=== PATIENT | male | born 1940 | race Caucasian/White ===

== ENCOUNTER 2017-08-15 09:53 | Inpatient (IN) ==
[2017-08-15] MEDS ORDERED: DILTIAZEM 50 MG/10 ML VIAL IV STA ×2 (10:22→11:18)
[2017-08-15] MEDS ORDERED: ASPIRIN 325 MG TABLET PO STA (10:22)
[2017-08-15] MEDS ORDERED: DILTIAZEM 50 MG/10 ML VIAL IV ONE (10:24)
[2017-08-15] MEDS ORDERED: ASPIRIN 325 MG TABLET ONE (10:27)
[2017-08-15 10:30] LABS: Basophils % 0.4 % (0.0-0.8); Eosinophils # 0.1 10*3/uL (0.0-0.87); Hematocrit 44.6 VOL% (42.0-52.0); Hemoglobin 15.1 GM/DL (14.0-18.0); Immature Granulocytes % 0.6 %; Immature Granulocytes Absolute 0.04 #; Lymphocytes # 1.1 10*3/uL (1.4-4.0); Lymphocytes % 15.6 % (21.2-54.2); Mean Corpuscular HGB Conc 33.9 GM/DL (32-36); Mean Corpuscular Hemoglobin 32 PG (27-34); Mean Corpuscular Volume 92.9 FL (87-102); Monocytes # 0.5 10*3/uL (0.11-0.8); Monocytes % 7.1 % (1.7-12.7); Neutrophils # 5.3 10*3/uL (1.4-7.4); Neutrophils % 75.3 % (38.7-73.9); Platelet Count 146 T/CUMM (130-400); Red Cell Distribution Width 14.2 % (9.3-17.3); White Blood Count 7.1 T/CUMM (4-12)
[2017-08-15 10:36] LABS: INR 1.1; PT Patient Result 11.2 SECS
--- NOTE | 2017-08-15 10:46 | XRay Report ---
XR chest 1V portable Indication: Shortness of breath Comparison: 11 February 2015 Findings: The heart and mediastinum are normal in size and configuration. The pulmonary vascularity is normal in caliber. Lung volumes are increased with prominent bronchial markings. No lung infiltrates, effusions, pneumothorax or other abnormality is demonstrated. Impression: Chronic lung changes. No acute process or significant change. PROCEDURE INTERPRETED AT [facility] DEPARTMENT OF RADIOLOGY Final Report Signed by: Dr. Jim Dave
[2017-08-15] MEDS ORDERED: APIXABAN 5 MG TABLET ONE (10:50)
[2017-08-15] MEDS ORDERED: DILTIAZEM 100 MG VIAL.ADD IV ONE (10:50)
--- NOTE | 2017-08-15 10:50 | CT Report ---
CT brain Indication: Left eye vision loss Comparison: None available Technique: Axial CT imaging of the brain is performed without contrast with 3 mm increments. Findings: No evidence of hemorrhage, mass mass effect midline shift or acute infarct seen. There is decreased density in the medial right occipital lobe. Remaining brain parenchyma attenuation and differentiation appears within normal limits. The ventricles and cisterns are normal in caliber. No cranial or skull base abnormality is identified. Impression: Decreased density medial right occipital lobe consistent with infarct, likely greater than 24-hour change. This CT exam was performed using one or more the following dose reduction techniques: Automated exposure control, adjustment of the MA and/or KV according to patient size, or use of iterative reconstruction technique. PROCEDURE INTERPRETED AT [facility] DEPARTMENT OF RADIOLOGY Final Report Signed by: Dr. Jim Dave
[2017-08-15] MEDS ORDERED: SODIUM CHLORIDE 0.9% 0 ML IV ONE (10:51)
[2017-08-15] MEDS ORDERED: SODIUM CHLORIDE 0.9% 100 ML IV ONE (10:52)
[2017-08-15] MEDS ORDERED: APIXABAN 5 MG TABLET PO STA (11:05)
[2017-08-15 11:10] LABS: Albumin 3.8 G/DL (3.4-5.0); Calcium 9.2 MG/DL (8.5-10.1); Osmolality,Calculated 281.4 MOS/KG (273-304); Potassium 4.1 MMOL/L (3.5-5.1); Thyroid Stimulating Hormone 0.91 uIU/ml (0.358-3.74); Total Protein 7.2 G/DL (6.4-8.3)
[2017-08-15 11:13] LABS: Troponin I Only 0.247 NG/ML (0.00-0.045)
--- NOTE | 2017-08-15 11:22 | Emergency Department Note ---
Judy Cristina Gwan, am scribing for, and in the presence of, Marc Martinez MD 10:12. Michelle Cristina Phillip K, MD, personally performed the services described in this documentation, ascribed by Hilario Kim in my presence, and it is both accurate and complete . Arrival - Arrival Chief Complaint: Non-Specific Stated Complaint: CT SCAN SENT BY DR COPE ED Nursing Triage Note: Pt c/o unable to see out of his left eye with some dizziness since he awoke this am at 0500. Pt went to Dr Cope's office and sent to ER for eval. Mode of Arrival: Ambulatory Limitations: No Limitations Source: Patient, Old Records Reviewed, RN Notes Reviewed - History of Present Illness HPI Narrative: Patient is a 77 y/o male, with a hx of HTN, who presents to the ED with a c/o vision change in both eyes and dizziness with an onset 0500 this morning. Patient stated that he reported to Dr. Cope's office and after further review, pt was prompted to report to ED. Patient confirmed that his vision is worse in his left eyes and that he takes low dose ASA daily. He denies any hx of AFIB, chest pain, SOB or any injury/trauma to that area. During exam, s/p EKG it was determined that pt has AFIB. No other problems/complaints reported in ED. Onset (ago): hour(s) Consistency: constant Severity: moderate Allergies/Adverse Reactions: Allergies Allergy/AdvReac Type Severity Reaction Status Date / Time No Known Allergies Allergy Verified 02/11/15 07:29 Home Medications: Home Medications Medication Instructions Recorded Confirmed Type Benazepril HCl 20 mg PO DAILY 02/11/15 02/11/15 History Naproxen [Naproxen Tab] 500 mg PO BID 02/11/15 02/11/15 History Omeprazole [Prilosec] 40 mg PO DAILY 02/11/15 02/11/15 History Review of System - Review of System 12 point system: reviewed and no additional remarkable complaints except as stated - Review of System Eyes: Present: as per HPI, vision change (both eyes/worse on left ). Absent: pain Respiratory: Absent: cough, wheezing Cardiovascular: Present: as per HPI. Absent: chest pain Neurological: Present: as per HPI, other (dizziness) Medical,Surgical,& Family Hx - Medical History Cardio: History of: Hypertension Genitourinary: History of: Genitourinary Cancer (prostate) - Surgical History Reproductive Surgeries: Surgical HX of;: Genitourinary Surgery (prostate) - Social History Smoking Status: Never smoker Exam Vital Signs: Vital Signs Temperature 97.4 F L 08/15/17 09:54 Pulse Rate 128 H 08/15/17 09:54 Respiratory Rate 16 08/15/17 09:54 Blood Pressure 142/100 08/15/17 09:54 O2 Sat by Pulse Oximetry 98 08/15/17 09:54 - General General appearance: alert, in no apparent distress - Head Head exam: Present: atraumatic, normocephalic - Eye Eye exam: Present: PERRL, EOMI. Absent: normal appearance (Patient's pupils are dialted due to Atropine given at Dr. Cope's office. ) - ENT ENT exam: Present: normal oropharynx, mucous membranes moist, TM's normal bilaterally, normal external ear exam - Neck Neck exam: Present: full ROM, trachea midline. Absent: tenderness - Chest Chest inspection: Present: symmetric chest wall rise. Absent: tenderness - Respiratory Respiratory exam: Present: normal lung sounds bilaterally. Absent: respiratory distress - Cardiovascular Cardiovascular exam: Present: tachycardia, irregular rhythm - Abdominal Exam Abdominal exam: Present: soft, normal bowel sounds. Absent: distention, tenderness - Extremities Exam Extremities exam: Present: full ROM. Absent: tenderness - Back Exam Back exam: Present: full ROM. Absent: tenderness - Neurological Exam Neurological exam: Present: alert, oriented X3, CN II-XII intact, other ( Decreased vision both eyes left greater than right). Absent: motor sensory deficit - Psychiatric Psychiatric exam: Present: normal affect, normal mood - Skin Skin exam: Present: warm, dry, intact, normal color Course Course Narrative: Admit to Dr. Lucia. Consult neurology Results - Labs CBC & BMP: 08/15/17 10:09 08/15/17 10:09 Lab Results: I have reviewed the patients labs - EKG EKG results: interpreted by CANDIDO (Atrial fibrillation with RVR) - Diagnostic Findings Procedure: CT: report reviewed by me (Right occipital lobe infarct) Disposition Clinical Impression: Right occipital lobe infarct, Vision loss, left eye Case discussed with: patient Disposition: Still a Patient Condition: Guarded Additional Instructions: Admit to Dr. Lucia.
[2017-08-15] MEDS: DILTIAZEM INJ 100 MG in SODIUM CHLORIDE 0.9% 100 ML IV SCH ×2 (12:05→19:06)
[2017-08-15] MEDS ORDERED: ONDANSETRON 4 MG/2 ML VIAL IV PRN (12:08)
[2017-08-15] MEDS ORDERED: ACETAMINOPHEN 325 MG TABLET PO PRN (12:08)
[2017-08-15] MEDS ORDERED: INFLUENZA VIRUS VACCINE 0.5 ML SYRINGE IM ONE (12:43)
--- NOTE | 2017-08-15 13:15 | Internal Med History&Physical ---
Assessment and Plan (1) Acute CVA (cerebrovascular accident) Status: Acute Assessment and plan: 77-year-old male admitted to acute care * Acute CVA. Probably related to A. fib. CT scan shows that infarct probably is over 24 hours old. Will need MRI of the brain. Consult Dr. De Jesus * New onset A. fib. Patient without any significant heart history. He has been short of breath for past few days. Will consult cardiology. He has been started on Eliquis and Cardizem infusion * Hypertension. Continue current treatment * Discussed with patient Current Visit: Yes (2) New onset atrial fibrillation Status: Acute Current Visit: Yes (3) Hypertension Status: Acute Current Visit: Yes (4) History of prostate cancer Status: Acute Current Visit: Yes (5) COPD (chronic obstructive pulmonary disease) Status: Acute Current Visit: Yes History of Present Illness Chief complaint: Unable to see out of left eye History of present illness: Mr. Falcon is a 77 year old male with history of hypertension, DVT, hyperlipidemia, osteoarthritis and prostate cancer who was drinking his for kidney surgery this morning. He got up this morning and was unable to see out of his left eye. He dropped his at the hospital and went to see his eye doctor and was sent to the emergency room. He had some associated dizziness. He denies any chest pain. He had felt some shortness of breath over last 2 days but nothing before that. He denied any weakness or slurred speech. He denied any falls or trauma. Patient has been taking his aspirin regularly. In the emergency room he was found to be in acute A. fib with rapid ventricular rate. Patient was evaluated with a CT brain which showed occipital infarct on the right side. Patient has been admitted to CCU. He feels his eyesight is getting better. He denies any chest pain or shortness of breath. He denies any nausea or vomiting. He lives at home with his . Home Medications Medication Instructions Recorded Confirmed Type Benazepril HCl 20 mg PO DAILY 02/11/15 08/15/17 History Naproxen [Naproxen Tab] 500 mg PO BID 02/11/15 08/15/17 History Omeprazole [Prilosec] 40 mg PO DAILY 02/11/15 08/15/17 History Aspirin [Ecotrin] 325 mg PO QAM 08/15/17 08/15/17 History Allergies Allergy/AdvReac Type Severity Reaction Status Date / Time No Known Allergies Allergy Verified 02/11/15 07:29 Medical,Surgical,& Family Hx - Medical History Cardio: History of: Cardiac Dysrhythmia (A fib (new onset 08/15/17)), Hypertension No history of: CAD Neurology: History of: Cerebrovascular Accident (Occipital 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/15/17) No history of: Dementia, Migraine, Seizures Endocrine: No history of: Dyslipidemia, Thyroid Disorder Respiratory: History of: COPD Genitourinary: History of: Genitourinary Cancer (prostate) Gastrointestinal: History of: GERD No history of: Gastrointestinal Bleed Musculoskeletal: No history of: Amputation, Musculoskeletal Problems (back pain) Hematology: No history of: Anemia, Clotting Problems, Blood Disorders - Surgical History HEENT Surgeries: Surgical HX of: Eye Surgery (bilateral cataract surgery), Tonsilectomy & Adenoidectomy Abdominal Surgeries: Surgical HX of: Appendectomy Patient denies: Cholecystectomy Reproductive Surgeries: Surgical HX of;: Prostate Surgery (Prostatectomy) Orthopedic Surgeries: Surgical HX of;: Spinal Surgery (Neck surgery twice in the past) Patient denies;: Orthopedic Surgery - Family History Family History: Reports;: Family Cancer (father (brain)) Denies;: Family Diabetes, Family Heart Disease, Family Hematology, Family Hypertension, Family Stroke - Social History Smoking Status: Former smoker Frequency of Alcohol Use: None Type of Drug Use: None Marital Status: Lives With:: Spouse Functional capacity: independent ambulation 12 point system: reviewed and no additional remarkable complaints except as stated (As mentioned in HPI) Exam - Constitutional Vitals: Period Temp Pulse Resp BP Sys/[place] Pulse Ox Last 24 Hr 97.4 F-98.0 F 128-135 16-18 123-142/89-105 98-99 Exam: Examination: GENERAL: NAD. HEENT: Decreased vision in both eyes. Mucous membranes are moist. NECK: Neck is supple. No JVD. No carotid bruit. No thyromegaly. CVS: Rhythm is irregularly irregular. S1 and S2 are normal. RESPIRATORY: Lungs are clear. No rales or rhonchi. ABDOMEN: Soft and nontender. Bowel sounds are present. No hepatosplenomegaly. EXT: No edema. Peripheral pulses are present. PATHOLOGY COLLECTOR: Patient is awake, alert and oriented to time place and person. Cranial nerves difficult to evaluate. Motor strength is 5 over 5 both upper and lower extremities. Sensory is intact. Deep tendon reflexes are present. SKIN: Warm and dry. MSK: No obvious deformity. Results - Labs CBC & BMP: 08/15/17 10:09 08/15/17 10:09 Lab Results: I have reviewed the past 24 hour labs Quality Measures - Stroke Onset of Symptoms Date: 08/15/17 Onset of Symptoms Time: 05:00 Presenting Symptoms: Sudden visual loss
[2017-08-15] MEDS ORDERED: NON-FORMULARY MEDICATION (Omeprazole [Prilosec] 40 MG) PO SCH (13:30)
--- NOTE | 2017-08-15 15:36 | Neurology Consult Note ---
History of Present Illness History of present illness: Mr. Falcon is a 77 year old right-handed white gentleman with past medical history significant for hypertension, DVT, hyperlipidemia, osteoarthritis and prostate cancer who is being admitted to the hospital with acute onset of vision difficulties. He got up this morning and was unable to see out of his left eye. He dropped his at the hospital and went to see his eye doctor and was sent to the emergency room. He had some associated dizziness. He denies any chest pain. He had felt some shortness of breath over last 2 days but nothing before that. He denied any weakness or slurred speech. He denied any falls or trauma. Patient has been taking aspirin regularly. In the emergency room he was found to be in acute A. fib with rapid ventricular rate. This is something new in onset. Patient was evaluated with a CT brain which showed acute right occipital lobe infarct. His vision is getting somewhat better. He has no known drug allergies. He was given 1 dose of Eliquis in the ER Home Medications Medication Instructions Recorded Confirmed Type Benazepril HCl 20 mg PO DAILY 02/11/15 08/15/17 History Naproxen [Naproxen Tab] 500 mg PO BID 02/11/15 08/15/17 History Omeprazole [Prilosec] 40 mg PO DAILY 02/11/15 08/15/17 History Aspirin [Ecotrin] 325 mg PO QAM 08/15/17 08/15/17 History Allergies Allergy/AdvReac Type Severity Reaction Status Date / Time No Known Allergies Allergy Verified 02/11/15 07:29 12 point system: reviewed and no additional remarkable complaints except as stated Medical,Surgical,& Family Hx - Medical History Cardio: History of: Cardiac Dysrhythmia (A fib (new onset 08/15/17)), Hypertension No history of: CAD Neurology: History of: Cerebrovascular Accident (Occipital lobe CVA 08/15/17) No history of: Dementia, Migraine, Seizures Endocrine: No history of: Dyslipidemia, Thyroid Disorder Respiratory: History of: COPD Genitourinary: History of: Genitourinary Cancer (prostate) Gastrointestinal: History of: GERD No history of: Gastrointestinal Bleed Musculoskeletal: No history of: Amputation, Musculoskeletal Problems (back pain) Hematology: No history of: Anemia, Clotting Problems, Blood Disorders - Surgical History HEENT Surgeries: Surgical HX of: Eye Surgery (bilateral cataract surgery), Tonsilectomy & Adenoidectomy Abdominal Surgeries: Surgical HX of: Appendectomy Patient denies: Cholecystectomy Reproductive Surgeries: Surgical HX of;: Genitourinary Surgery (prostate), Prostate Surgery (Prostatectomy) Orthopedic Surgeries: Surgical HX of;: Spinal Surgery (Neck surgery twice in the past) Patient denies;: Orthopedic Surgery - Family History Family History: Reports;: Family Cancer (father (brain)) Denies;: Family Diabetes, Family Heart Disease, Family Hematology, Family Hypertension, Family Stroke - Social History Smoking Status: Former smoker Frequency of Alcohol Use: None Type of Drug Use: None Exam - Constitutional Vitals: Period Temp Pulse Resp BP Sys/[place] Pulse Ox Last 24 Hr 97.4 F-98.0 F 87-135 16-22 102-142/54-105 96-99 Exam: GENERAL: Patient is in no acute distress. NECK: Neck is supple. There is no JVD. No carotid bruits present. No thyroid masses. CVS: First and second heart sounds are normal. There is no S3 present. Regular rate and rhythm. RESPIRATORY: Lungs are clear to auscultation without any rales or rhonchi. ABDOMEN: Soft and non-tender. Bowel sounds are present. There is no hepatosplenomegaly. EXT: There is no palpable edema. Peripheral pulses are present. Skin: No rashes Central Nervous system: General: Alert, awake and Oriented x 3 Speech: Fluent Comprehension: Intact and normal Facial expressions: Normal Cranial Nerves: CN1/Olfactory: Normal CN II/ Optic: Normal, Visual Mendez: Left homonymous hemianopia CN III, and : EDWIN & EOMI CN V: Normal & intact CN VII: face is symmetric CNVIII: Normal CN XI/X/XI/XII: Intact and Normal Motor: Bulk and Tone is normal. Strength in the right 5/5 Strength in the left 5/5 Sensory: Grossly intact for all the modalities of PP, LT and temp sense Reflexes: 1+ and symmetrical Cerebellar function: Normal finger to nose and heel to jarrett testing. Toes: Equivocal Gait: Not tested at this time Results - Labs CBC & BMP: 08/15/17 10:09 08/15/17 10:09 Assessment and Plan (1) Acute CVA (cerebrovascular accident) Status: Acute Assessment and plan: Continue aspirin a day Add Xarelto 20 mg. P.o. daily Check carotid ultrasound and echocardiogram Lipid panel Current Visit: Yes (2) New onset atrial fibrillation Status: Acute Assessment and plan: Continue Cardizem drip Current Visit: Yes (3) Hypertension Status: Acute Assessment and plan: Continue current medications. Check vitals per routine Current Visit: Yes
[2017-08-15] MEDS: RIVAROXABAN 20 MG TABLET PO SCH (17:44)
[2017-08-15 18:03] LABS: Risk Ratio 1.7; VLDL CHOLESTEROL 14.6 MG/DL
[2017-08-15 18:07] LABS: Troponin I Only 0.319 NG/ML (0.00-0.045)
--- NOTE | 2017-08-15 19:12 | Ultrasound Report ---
Exam: US carotid duplex BI Date: 08/15/2017 3:39 PM Indication: Focal neurologic deficit, CVA, syncope Findings: Grayscale color flow analysis and spectral analysis imaging was performed with image stored and captured. Right Side Flow velocities centimeters per second Common carotid artery: 54.6 Proximal ICA: 44.4 Distal ICA: 38.3 External carotid artery: 99.0 Vertebral artery: 45.5 ICA/CCA ratio: 0.8 Left SIde Flow velocities centimeters per second Common carotid artery: 46.2 Proximal ICA: 58.4 Distal ICA: 32.0 External carotid artery: 69.7 Vertebral artery: 31.3 ICA/CCA ratio: 1.3 Minimal calcified plaquing bilaterally with no significant stenosis or luminal irregularity. Impression: 1. No high-grade stenosis Today studies were performed utilizing indirect NASCET criteria The ultrasound images were stored and captured PROCEDURE INTERPRETED AT [facility] DEPARTMENT OF RADIOLOGY Final Report Signed by: Roberto Laws MD
--- NOTE | 2017-08-15 20:01 | Cardiology Consult Note ---
Hill Cristina Lesley, JACQUES, am scribing for, and in the presence of, Mike Cook MD 20:01. Assessment and Plan - Time spent with patient Time spent with patient: Greater than 30 minutes (Record review, assessment, and documentation) (1) Vision loss, left eye Status: Acute Assessment and plan: SEE PLAN LISTED BELOW Current Visit: Yes (2) Acute CVA (cerebrovascular accident) Status: Acute Assessment and plan: SEE PLAN LISTED BELOW Current Visit: Yes (3) Hypertension Status: Acute Assessment and plan: SEE PLAN LISTED BELOW Current Visit: Yes (4) COPD (chronic obstructive pulmonary disease) Status: Acute Assessment and plan: SEE PLAN LISTED BELOW Current Visit: Yes (5) Atrial flutter Status: Acute Current Visit: Yes (6) Atrial flutter Status: Acute Assessment and plan: SEE PLAN LISTED BELOW Current Visit: Yes History of Present Illness - Data of Consult Patient: new to practice Consult date: 08/15/17 Requesting Physician: Yony Lucia Primary care physician: Yony Lucia - Consult Narrative Reason for consult: AFIB, CVA History of present illness: HOSE TURNER: none Dr. Cook (new) Mr. Falcon is a 77 year old WM, with no history of cardiac disease. The patient is a fair historian. He reports that upon waking this morning at 0500, he noticed he could not see out of his left eye and dizziness upon standing. He states he had no peripheral vision in the left eye. He drove himself to Dr. Brooks's office, who directed him to the ER. EKG revealed Atrial Fibrillation with RVR, rate in the 130s. Head CT revealed right occipital lobe infarct, likely greater than 24 hour change. The patient denies heart palpitations, dyspnea, chest pain, heaviness, or tightness. Chest xray revealed no acute process, chronic lung changes. The patient states he quit smoking about 40 years ago. His is at the bedside, and states he had an inpatient cardiac workup approximately 9 years ago at [facility], records have been requested. He has not seen a Biochemistry Specialist in follow up. PMH includes prostate cancer, hiatal hernia, GERD, hypertension, chronic low back and hip pain. PSH includes cervical surgery, prostatectomy, skin cancer removal, and hemorrhoidectomy. Cardiac risk factors include obesity, advanced age, CVA, AFib, hypertension, sedentary lifestyle. Family history includes his father of brain cancer, his mother had hypertension and Alzheimers. He has 2 sisters who do not have cardiac history. The patient was admitted to ICU for observation. He was given a Cardizem bolus IV, and is currently on a Cardizem infusion. His heart rate is in the 90's with AFib on awake overnight monitor. The patient was dosed with Eliquis and ASA in the ED. Neurology has been consulted. Blood pressure is controlled, 120/90's. AFib rate is in the 90's on Cardizem at 15mg/hr. Labs reviewed, Troponin elevated at 0.247, thyroid studies unremarkable, glucose slightly elevated, creatinine 1.2, Magnesium 1.7. Plan to continue Cardizem infusion for rate control and convert to oral meds when able. Repeat cardiac biomarkers and EKG. We will continue anticoagulant, Eliquis, also antiplatelet therapy. No neurologic deficits noted on exam other than vision in left eye, pt. did not stand and walk during exam. IMPRESSION AND PLAN: -Atrial flutter. This is still quite RVR. This may also be the cause for his ischemic CVA. Continue anticoagulation. If heart rate is controlled with medical management, it would be optimal to anticoagulate him for at least a month, before attempting rhythm control. If we have to pursue this sooner, a CECY guided approach may be feasible. There is high risk, may still have an ALEX clot. -Beta-amy, calcium channel amy for RVR. Typical atrial flutter, likely will remain difficult rate control. -We may pursue ablation, once he improves. -Permissive blood pressure control, recent CVA CC: Yony Lucia MD - Home Medications and Allergies Home Medications: Home Medications Medication Instructions Recorded Confirmed Type Benazepril HCl 20 mg PO DAILY 02/11/15 08/15/17 History Naproxen [Naproxen Tab] 500 mg PO BID 02/11/15 08/15/17 History Omeprazole [Prilosec] 40 mg PO DAILY 02/11/15 08/15/17 History Aspirin [Ecotrin] 325 mg PO QAM 08/15/17 08/15/17 History Allergies/Adverse Reactions: Allergies Allergy/AdvReac Type Severity Reaction Status Date / Time No Known Allergies Allergy Verified 02/11/15 07:29 - Constitutional Constitutional: Absent: daytime sleepiness, fatigue, headache(s) - EENT Eyes: Present: blurry vision, loss of vision Ears: Absent: decreased hearing Nose, mouth and throat: Absent: dysphagia, headache(s) - Cardiovascular Cardiovascular: Present: edema, lightheadedness. Absent: chest pain at rest, chest pain with activity, diaphoresis, dyspnea, dyspnea on exertion, radiating jaw, neck or arm pain, palpitations - Respiratory Respiratory: Absent: cough, dyspnea, dyspnea on exertion, wheezing - Gastrointestinal Gastrointestinal: Absent: abdominal pain, coffee ground emesis, constipation, dyspepsia, dysphagia, hematemesis, hematochezia, nausea, vomiting - Genitourinary Genitourinary: Absent: difficulty urinating, hematuria - Neurological Neurological: Present: dizziness. Absent: abnormal speech, behavioral changes, confusion - Psychiatric Psychiatric: Absent: anxiety, confusion, depression - Endocrine Endocrine: Absent: fatigue - Hematologic/Lymphatic Hematologic/Lymphatic: Absent: easy bleeding Medical,Surgical,& Family Hx - Medical History Cardio: History of: Cardiac Dysrhythmia (A fib (new onset 08/15/17)), Hypertension No history of: CAD Neurology: History of: Cerebrovascular Accident (Occipital lobe CVA 08/15/17) No history of: Dementia, Migraine, Seizures Endocrine: No history of: Diabetes Mellitus (IDDM), Diabetes Mellitus (NIDDM), Dyslipidemia, Thyroid Disorder Respiratory: History of: COPD Genitourinary: History of: Genitourinary Cancer (prostate) Gastrointestinal: History of: GERD No history of: Gastrointestinal Bleed Musculoskeletal: No history of: Amputation, Musculoskeletal Problems (back pain) Hematology: No history of: Anemia, Clotting Problems, Blood Disorders - Surgical History HEENT Surgeries: Surgical HX of: Eye Surgery (bilateral cataract surgery), Tonsilectomy & Adenoidectomy Abdominal Surgeries: Surgical HX of: Appendectomy Patient denies: Cholecystectomy Reproductive Surgeries: Surgical HX of;: Genitourinary Surgery (prostate), Prostate Surgery (Prostatectomy) Orthopedic Surgeries: Surgical HX of;: Spinal Surgery (Neck surgery twice in the past) Patient denies;: Orthopedic Surgery - Family History Family History: Reports;: Family Cancer (father (brain)) Denies;: Family Diabetes, Family Heart Disease, Family Hematology, Family Hypertension, Family Stroke - Social History Smoking Status: Former smoker Have you smoked in the last 12 months: No Frequency of Alcohol Use: None Type of Drug Use: None Marital Status: Lives With:: Spouse Functional capacity: independent ambulation Physical Examination Vital Signs Temp Pulse Resp BP Pulse Ox 97.4 F L 128 H 16 142/100 98 08/15/17 09:54 08/15/17 09:54 08/15/17 09:54 08/15/17 09:54 08/15/17 09:54 Exam: General: Appears well with no apparent distress. Pleasant and cooperative. Appears comfortable. HEENT: PERRL, normocephalic, atraumatic. Mucous membranes moist. No jaundice noted. Conjunctiva moist and clear, sclerae anicteric. Loss of peripheral vision on the left. Reports blurry vision to left eye. Neck: No JVD, no thyromegaly or lymphadenopathy noted. No carotid bruit appreciated. Cardiac: Irregularly irregular rate and rhythm. No murmur rub or gallop. PMI is nondisplaced. Lungs: Clear to auscultation without accessory muscle use to assist the respiratory pattern. No oxygen in use. Abdomen: Soft, bowel sounds normoactive. Nontender and nondistended. No abdominal bruit or thrill noted. No masses noted. Musculoskeletal: No fluid collection. Full range of motion is noted, strength equal bilaterally to all extremities. Extremities: No clubbing, cyanosis noted. No edema noted. Upper extremity pulses 2+. Lower extremity pulses 2+. Capillary refill less than 3 seconds. Skin: No unusual lesions or rashes. No skin breakdown appreciated. Neuro: Awake, alert and oriented 3. Moves all extremities well without hemiparesis or paralysis. No essential tremor is appreciated. Result/EKG - Labs CBC & BMP: 08/15/17 10:09 08/15/17 10:09 Lab Results: I have reviewed the past 24 hour labs Labs: Laboratory Results - last 24 hr 08/15/17 08/15/17 08/15/17 10:09 10:09 10:09 WBC 7.1 RBC 4.80 Hgb 15.1 Hct 44.6 MCV 92.9 MCH 32 MCHC 33.9 RDW 14.2 Plt Count 146 MPV 12.0 Neut % (Auto) 75.3 H Lymph % (Auto) 15.6 L [place] % (Auto) 7.1 Eos % (Auto) 1.0 Baso % (Auto) 0.4 Neut # (Auto) 5.3 Lymph # (Auto) 1.1 L [place] # (Auto) 0.5 Eos # (Auto) 0.1 Baso # (Auto) 0.0 Immature Gran % 0.6 Nucleated RBC % 0.0 Immature Gran # 0.04 Nucleated RBCs # 0.00 Immature Plt Fraction 0.0 INR 1.1 PT Patient/Control Mix 11.2 Sodium Potassium Chloride Carbon Dioxide Anion Gap BUN Creatinine GFR Calculation BUN/Creatinine Ratio Glucose Calculated Osmolality Calcium Magnesium 1.7 L Total Bilirubin AST ALT Alkaline Phosphatase Troponin I Total Protein Albumin Globulin Albumin/Globulin Ratio Free T4 TSH 3rd Generation 08/15/17 08/15/17 10:09 10:09 WBC RBC Hgb Hct MCV MCH MCHC RDW Plt Count MPV Neut % (Auto) Lymph % (Auto) [place] % (Auto) Eos % (Auto) Baso % (Auto) Neut # (Auto) Lymph # (Auto) [place] # (Auto) Eos # (Auto) Baso # (Auto) Immature Gran % Nucleated RBC % Immature Gran # Nucleated RBCs # Immature Plt Fraction INR PT Patient/Control Mix Sodium 140 Potassium 4.1 Chloride 105 Carbon Dioxide 25 Anion Gap 14.1 BUN 18 Creatinine 1.20 GFR Calculation 71 BUN/Creatinine Ratio 15.00 Glucose 113 H Calculated Osmolality 281.4 Calcium 9.2 Magnesium Total Bilirubin 1.00 AST 23 ALT 27 Alkaline Phosphatase 85 Troponin I 0.247 H Total Protein 7.2 Albumin 3.8 Globulin 3.4 Albumin/Globulin Ratio 1.1 Free T4 1.14 TSH 3rd Generation 0.910 - Diagnostic Findings Procedure: Chest x-ray: report reviewed by me, CT: report reviewed by me - EKG EKG results: interpreted by me EKG shows: atrial fibrillation Quality Measures - Stroke Onset of Symptoms Date: 08/15/17 Onset of Symptoms Time: 05:00 Presenting Symptoms: Sudden visual loss Joey Cristina Attila, MD, personally performed the services described in this documentation, ascribed by Francy Alejandre NP in my presence, and it is both accurate and complete .
[2017-08-15] MEDS: DOCUSATE SODIUM 100 MG CAPSULE PO SCH (21:04)
--- NOTE | 2017-08-16 04:42 | DUMMY REPORT TO COMPLETE ORDER ---
See report scanned to EMR
[2017-08-16] MEDS: DILTIAZEM INJ 100 MG in SODIUM CHLORIDE 0.9% 100 ML IV SCH ×2 (04:46→13:17)
[2017-08-16 06:43] LABS: Basophils % 0.6 % (0.0-0.8); Eosinophils # 0.2 10*3/uL (0.0-0.87); Eosinophils % 2.8 % (0.00-10.9); Hematocrit 41.8 VOL% (42.0-52.0); Immature Granulocytes % 0.6 %; Immature Granulocytes Absolute 0.03 #; Lymphocytes # 0.9 10*3/uL (1.4-4.0); Lymphocytes % 16.5 % (21.2-54.2); Mean Corpuscular HGB Conc 33.5 GM/DL (32-36); Mean Corpuscular Hemoglobin 31 PG (27-34); Mean Corpuscular Volume 93.3 FL (87-102); Monocytes # 0.5 10*3/uL (0.11-0.8); Neutrophils # 3.8 10*3/uL (1.4-7.4); Neutrophils % 70.5 % (38.7-73.9); Platelet Count 122 T/CUMM (130-400); Red Blood Count 4.48 MC/CUMM (3.8-5.5); Red Cell Distribution Width 14.4 % (9.3-17.3); White Blood Count 5.3 T/CUMM (4-12)
[2017-08-16 07:14] LABS: Blood Urea Nitrogen 17 MG/DL (7-18); Calcium 8.9 MG/DL (8.5-10.1); Glucose 107 MG/DL (74-106); Osmolality,Calculated 282.3 MOS/KG (273-304); Potassium 4.2 MMOL/L (3.5-5.1); Sodium 141 MMOL/L (136-145)
[2017-08-16 07:16] LABS: Troponin I Only 0.181 NG/ML (0.00-0.045)
[2017-08-16] MEDS ORDERED: METOPROLOL TARTRATE 5 MG/5 ML VIAL IV ONE (08:08)
--- NOTE | 2017-08-16 08:30 | Internal Med Progress Note ---
Assessment and Plan (1) Acute CVA (cerebrovascular accident) Status: Acute Assessment and plan: 77-year-old male admitted to acute care * Acute CVA. He is stable. Continue current treatment * A. fib a flutter. Ventricular rate is still high. He is still on Cardizem. * Hypertension. Continue current treatment * Okay to go to telemetry * Discussed with the patient Current Visit: Yes (2) New onset atrial fibrillation Status: Acute Current Visit: Yes (3) Hypertension Status: Acute Current Visit: Yes (4) History of prostate cancer Status: Acute Current Visit: Yes (5) COPD (chronic obstructive pulmonary disease) Status: Acute Current Visit: Yes Internal Medicine - PN: Subj Interval history: He feels better this morning. He feels his vision is slightly better. He denies any chest pain or shortness of breath. He denies any nausea or vomiting Exam (Progress Note) - Constitutional Vitals: Period Temp Pulse Resp BP Sys/[place] Pulse Ox Last 24 Hr 97.4 F-98.5 F 87-135 12-24 80-142/53-105 93-99 Exam: Examination: GENERAL: NAD. HEENT: Decreased vision in both eyes. Mucous membranes are moist. NECK: Neck is supple. CVS: Rhythm is irregularly irregular. S1 and S2 are normal. RESPIRATORY: Lungs are clear. ABDOMEN: Soft and nontender. EXT: No edema. Peripheral pulses are present. MEDICAL BILLING SPECIALIST: Patient is awake, alert and oriented to time place and person. Left homonymous hemianopsia. Motor strength 5/5 SKIN: Warm and dry. MSK: No obvious deformity. Results - Labs CBC & BMP: 08/16/17 06:05 08/16/17 06:05 Lab Results: I have reviewed the past 24 hour labs Quality Measures - Stroke Onset of Symptoms Date: 08/15/17 Onset of Symptoms Time: 05:00 Presenting Symptoms: Sudden visual loss
[2017-08-16] MEDS: DOCUSATE SODIUM 100 MG CAPSULE PO SCH ×2 (09:13→21:05)
[2017-08-16] MEDS: METOPROLOL TARTRATE 25 MG TABLET PO SCH ×2 (09:13→21:05)
[2017-08-16] MEDS: PANTOPRAZOLE 40 MG TABLET PO SCH (09:13)
[2017-08-16] MEDS: ASPIRIN EC 325 MG TABLET PO SCH (09:13)
[2017-08-16] MEDS: BENAZEPRIL 10 MG TABLET PO SCH (09:20)
[2017-08-16] MEDS ORDERED: INFLUENZA VIRUS VACCINE 0.5 ML SYRINGE IM ONE (10:00)
[2017-08-16] MEDS: DILTIAZEM CD 240 MG CAPSULE PO SCH (13:38)
--- NOTE | 2017-08-16 15:02 | Neurology Progress Note ---
Neurology - PN : Subjective Interval history: Patient seems to be doing better. No new problems reported. Patient is about the same. Carotid ultrasound is unremarkable. Lipid panel is okay however we will add small dose of Lipitor as per stroke protocol. Echocardiogram is pending. Exam (Progress Note) - Constitutional Vitals: Period Temp Pulse Resp BP Sys/[place] Pulse Ox Last 24 Hr 97.8 F-98.5 F 87-136 12-90 80-138/53-98 93-98 Exam: GENERAL: Patient is in no acute distress. NECK: Neck is supple. There is no JVD. No carotid bruits present. No thyroid masses. CVS: First and second heart sounds are normal. There is no S3 present. Regular rate and rhythm. RESPIRATORY: Lungs are clear to auscultation without any rales or rhonchi. ABDOMEN: Soft and non-tender. Bowel sounds are present. There is no hepatosplenomegaly. EXT: There is no palpable edema. Peripheral pulses are present. Skin: No rashes Central Nervous system: General: Alert, awake and Oriented x 3 Speech: Fluent Comprehension: Intact and normal Facial expressions: Normal Cranial Nerves: CN1/Olfactory: Normal CN II/ Optic: Normal, Visual Mendez: Left homonymous hemianopia CN III, and : EDWIN & EOMI CN V: Normal & intact CN VII: face is symmetric CNVIII: Normal CN XI/X/XI/XII: Intact and Normal Motor: Bulk and Tone is normal. Strength in the right 5/5 Strength in the left 5/5 Sensory: Grossly intact for all the modalities of PP, LT and temp sense Reflexes: 1+ and symmetrical Cerebellar function: Normal finger to nose and heel to jarrett testing. Toes: Equivocal Gait: Not tested at this time Results - Labs CBC & BMP: 08/16/17 06:05 08/16/17 06:05 Assessment and Plan (1) Acute CVA (cerebrovascular accident) Status: Acute Assessment and plan: Continue aspirin a day Continue Xarelto 20 mg. P.o. daily Lipitor 5 mg p.o. daily Okay to go to the floor from neuro standpoint Current Visit: Yes (2) New onset atrial fibrillation Status: Acute Assessment and plan: Continue Cardizem Current Visit: Yes (3) Hypertension Status: Acute Assessment and plan: Continue current medications. Check vitals per routine Current Visit: Yes Quality Measures - Stroke Onset of Symptoms Date: 08/15/17 Onset of Symptoms Time: 05:00 Presenting Symptoms: Sudden visual loss Specialty Discharge - Follow Up or Referrals
--- NOTE | 2017-08-16 16:50 | Cardiology Progress Note ---
Hill Cristina Lesley, JACQUES, am scribing for, and in the presence of, Mike Cook MD 16:50. Assessment and Plan - Time spent with patient Time spent with patient: Greater than 30 minutes (Record review, assessment, and documentation) (1) Vision loss, left eye Status: Acute Assessment and plan: SEE PLAN LISTED BELOW Current Visit: Yes (2) Acute CVA (cerebrovascular accident) Status: Acute Assessment and plan: SEE PLAN LISTED BELOW Current Visit: Yes (3) Hypertension Status: Acute Assessment and plan: SEE PLAN LISTED BELOW Current Visit: Yes (4) COPD (chronic obstructive pulmonary disease) Status: Acute Assessment and plan: SEE PLAN LISTED BELOW Current Visit: Yes (5) Atrial flutter Status: Acute Assessment and plan: SEE PLAN LISTED BELOW Current Visit: Yes (6) Atrial flutter Status: Acute Assessment and plan: SEE PLAN LISTED BELOW Current Visit: Yes Cardiology - PN: Subj Interval history: WASTE PICKER: none Dr. Cook (new) SUMMARY: Mr. Falcon is a 77 year old WM, with no history of cardiac disease. The patient is a fair historian. He reports that upon waking this morning at 0500, he noticed he could not see out of his left eye and dizziness upon standing. He states he had no peripheral vision in the left eye. He drove himself to Dr. Brooks's office, who directed him to the ER. EKG revealed Atrial Flutter with RVR , rate in the 130s. Head CT revealed right occipital lobe infarct, likely greater than 24 hour change. The patient denies heart palpitations, dyspnea, chest pain, heaviness, or tightness. Chest xray revealed no acute process, chronic lung changes. The patient states he quit smoking about 40 years ago. PMH includes prostate cancer, hiatal hernia, GERD, hypertension, chronic low back and hip pain. PSH includes cervical surgery, prostatectomy, skin cancer removal, and hemorrhoidectomy. Cardiac risk factors include obesity, advanced age, CVA, AFib, hypertension, sedentary lifestyle. Family history includes his father of brain cancer, his mother had hypertension and Alzheimers. He has 2 sisters who do not have cardiac history. AUGUST 16, 2017: The patient is seen and examined in ICU for observation. Recent acute CVA, new onset Aflutter with RVR, hypertension. Patient continues to be in atrial flutter with RVR, rate in the 130s. His blood pressure has remained controlled , and the patient is still on a Cardizem drip at 10mg/hr. Initiating beta- blockade today for improved rate control. Continue Xarelto. Labs reviewed today and unremarkable. Troponins slightly elevated likely due to stroke. Carotid Doppler done bilaterally revealed no high-grade stenosis. Echocardiogram results pending. The patient states he feels vision is improving in left eye. No other neurological deficits noted. ROS: denies chest pain mild SOB with exertion no acute distress IMPRESSION AND PLAN: -Atrial flutter. This is still quite RVR. This may also be the cause for his ischemic CVA. Continue Xarelto, ASA. If heart rate is controlled with medical management, it would be optimal to anticoagulate him for at least a month, before attempting rhythm control. If we have to pursue this sooner, a CECY guided approach may be feasible. There is high risk, may still have an ALEX clot. -Beta-amy, calcium channel amy for RVR. Typical atrial flutter, likely will remain difficult rate control. -We may pursue ablation, once he improves. -Permissive blood pressure control, recent CVA Exam (Progress Note) - Constitutional Vitals: Period Temp Pulse Resp BP Sys/[place] Pulse Ox Last 24 Hr 97.4 F-98.5 F 87-135 16-24 80-142/54-105 93-99 Exam: General: Appears well with no apparent distress. Pleasant and cooperative. Appears comfortable. HEENT: PERRL, normocephalic, atraumatic. Mucous membranes moist. No jaundice noted. Conjunctiva moist and clear, sclerae anicteric. Neck: No JVD, no thyromegaly or lymphadenopathy noted. No carotid bruit appreciated. Cardiac: Irregular rate and rhythm. No murmur rub or gallop. PMI is nondisplaced. Lungs: Clear to auscultation without accessory muscle use to assist the respiratory pattern. No oxygen in use. Abdomen: Soft, bowel sounds normoactive. Nontender and nondistended. No abdominal bruit or thrill noted. No masses noted. Musculoskeletal: No fluid collection. Full range of motion is noted. Extremities: No clubbing, cyanosis noted. No edema noted. Upper extremity pulses 2+. Lower extremity pulses 2+. Capillary refill less than 3 seconds. Skin: Warm and dry. No unusual lesions or rashes. No skin breakdown appreciated. Neuro: Awake, alert and oriented 3. Moves all extremities well without hemiparesis or paralysis. No essential tremor is appreciated. Result/EKG - Labs CBC & BMP: 08/16/17 06:05 08/16/17 06:05 Lab Results: I have reviewed the past 24 hour labs Labs: Laboratory Results - last 24 hr 08/15/17 08/15/17 08/15/17 10:09 10:09 10:09 WBC 7.1 RBC 4.80 Hgb 15.1 Hct 44.6 MCV 92.9 MCH 32 MCHC 33.9 RDW 14.2 Plt Count 146 MPV 12.0 Neut % (Auto) 75.3 H Lymph % (Auto) 15.6 L [place] % (Auto) 7.1 Eos % (Auto) 1.0 Baso % (Auto) 0.4 Neut # (Auto) 5.3 Lymph # (Auto) 1.1 L [place] # (Auto) 0.5 Eos # (Auto) 0.1 Baso # (Auto) 0.0 Immature Gran % 0.6 Nucleated RBC % 0.0 Immature Gran # 0.04 Nucleated RBCs # 0.00 Immature Plt Fraction 0.0 INR 1.1 PT Patient/Control Mix 11.2 Sodium Potassium Chloride Carbon Dioxide Anion Gap BUN Creatinine GFR Calculation BUN/Creatinine Ratio Glucose Calculated Osmolality Calcium Magnesium 1.7 L Total Bilirubin AST ALT Alkaline Phosphatase Total Creatine Kinase CK-MB (CK-2) Troponin I Total Protein Albumin Globulin Albumin/Globulin Ratio Triglycerides Cholesterol LDL Cholesterol VLDL Cholesterol HDL Cholesterol Heart Disease Risk Ratio Free T4 TSH 3rd Generation 08/15/17 08/15/17 08/15/17 10:09 10:09 16:37 WBC RBC Hgb Hct MCV MCH MCHC RDW Plt Count MPV Neut % (Auto) Lymph % (Auto) [place] % (Auto) Eos % (Auto) Baso % (Auto) Neut # (Auto) Lymph # (Auto) [place] # (Auto) Eos # (Auto) Baso # (Auto) Immature Gran % Nucleated RBC % Immature Gran # Nucleated RBCs # Immature Plt Fraction INR PT Patient/Control Mix Sodium 140 Potassium 4.1 Chloride 105 Carbon Dioxide 25 Anion Gap 14.1 BUN 18 Creatinine 1.20 GFR Calculation 71 BUN/Creatinine Ratio 15.00 Glucose 113 H Calculated Osmolality 281.4 Calcium 9.2 Magnesium Total Bilirubin 1.00 AST 23 ALT 27 Alkaline Phosphatase 85 Total Creatine Kinase 77 CK-MB (CK-2) 3.5 Troponin I 0.247 H 0.319 H D Total Protein 7.2 Albumin 3.8 Globulin 3.4 Albumin/Globulin Ratio 1.1 Triglycerides Cholesterol LDL Cholesterol VLDL Cholesterol HDL Cholesterol Heart Disease Risk Ratio Free T4 1.14 TSH 3rd Generation 0.910 08/15/17 08/16/17 08/16/17 16:37 06:05 06:05 WBC 5.3 RBC 4.48 Hgb 14.0 Hct 41.8 L MCV 93.3 MCH 31 MCHC 33.5 RDW 14.4 Plt Count 122 L MPV 12.0 Neut % (Auto) 70.5 Lymph % (Auto) 16.5 L [place] % (Auto) 9.0 Eos % (Auto) 2.8 Baso % (Auto) 0.6 Neut # (Auto) 3.8 Lymph # (Auto) 0.9 L [place] # (Auto) 0.5 Eos # (Auto) 0.2 Baso # (Auto) 0.0 Immature Gran % 0.6 Nucleated RBC % 0.0 Immature Gran # 0.03 Nucleated RBCs # 0.00 Immature Plt Fraction 0.0 INR PT Patient/Control Mix Sodium 141 Potassium 4.2 Chloride 109 H Carbon Dioxide 22 Anion Gap 14.2 BUN 17 Creatinine 1.00 GFR Calculation 89 BUN/Creatinine Ratio 17.00 Glucose 107 H Calculated Osmolality 282.3 Calcium 8.9 Magnesium Total Bilirubin AST ALT Alkaline Phosphatase Total Creatine Kinase 91 CK-MB (CK-2) 3.5 Troponin I 0.181 H D Total Protein Albumin Globulin Albumin/Globulin Ratio Triglycerides 73 Cholesterol 167 LDL Cholesterol 57.0 VLDL Cholesterol 14.6 HDL Cholesterol 98 H Heart Disease Risk Ratio 1.70 Free T4 TSH 3rd Generation - EKG EKG results: interpreted by me (atrial flutter) Quality Measures - Stroke Onset of Symptoms Date: 08/15/17 Onset of Symptoms Time: 05:00 Presenting Symptoms: Sudden visual loss Joey Cristina Attila, MD, personally performed the services described in this documentation, ascribed by Francy Alejandre NP in my presence, and it is both accurate and complete 650 .
[2017-08-16] MEDS: RIVAROXABAN 20 MG TABLET PO SCH (18:05)
--- NOTE | 2017-08-16 19:49 | DUMMY REPORT TO COMPLETE ORDER ---
See report scanned to EMR
[2017-08-17] MEDS: DILTIAZEM INJ 100 MG in SODIUM CHLORIDE 0.9% 100 ML IV SCH (01:09)
--- NOTE | 2017-08-17 09:04 | Internal Med Progress Note ---
Assessment and Plan (1) Acute CVA (cerebrovascular accident) Status: Acute Assessment and plan: 77-year-old male admitted to acute care * Acute CVA. He is stable. Continue current treatment * A. fib a flutter. He was started back on Cardizem infusion because of elevated heart rate last night * Hypertension. Continue current treatment * Okay to go to telemetry * Started on PT and OT * Discussed with the patient Current Visit: Yes (2) New onset atrial fibrillation Status: Acute Current Visit: Yes (3) Hypertension Status: Chronic Current Visit: Yes (4) History of prostate cancer Status: Acute Current Visit: Yes (5) COPD (chronic obstructive pulmonary disease) Status: Acute Current Visit: Yes Internal Medicine - PN: Subj Interval history: He feels better this morning. His vision is still causing him problems. No chest pain or shortness of breath. He was able to walk with the help of physical therapy Exam (Progress Note) - Constitutional Vitals: Period Temp Pulse Resp BP Sys/[place] Pulse Ox Last 24 Hr 97.8 F-9805 F 76-135 13-25 82-129/48-90 93-98 Exam: Examination: GENERAL: NAD. HEENT: Decreased vision in both eyes. NECK: Neck is supple. CVS: Rhythm is irregularly irregular. S1 and S2 are normal. RESPIRATORY: Lungs are clear. ABDOMEN: Soft and nontender. EXT: No edema. 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 Motor strength 5/5 SKIN: Warm and dry. MSK: No obvious deformity. Results - Labs CBC & BMP: 08/16/17 06:05 08/16/17 06:05 Lab Results: I have reviewed the past 24 hour labs Quality Measures - Stroke Onset of Symptoms Date: 08/15/17 Onset of Symptoms Time: 05:00 Presenting Symptoms: Sudden visual loss Specialty Discharge - Follow Up or Referrals
[2017-08-17] MEDS: ASPIRIN EC 325 MG TABLET PO SCH (09:20)
[2017-08-17] MEDS: PANTOPRAZOLE 40 MG TABLET PO SCH (09:20)
[2017-08-17] MEDS: DILTIAZEM CD 240 MG CAPSULE PO SCH (09:20)
[2017-08-17] MEDS: METOPROLOL TARTRATE 25 MG TABLET PO SCH ×2 (09:21→21:39)
[2017-08-17] MEDS: DOCUSATE SODIUM 100 MG CAPSULE PO SCH ×2 (09:21→21:39)
[2017-08-17] MEDS: BENAZEPRIL 10 MG TABLET PO SCH (09:21)
[2017-08-17] MEDS ORDERED: INFLUENZA VIRUS VACCINE 0.5 ML SYRINGE IM ONE (10:00)
--- NOTE | 2017-08-17 13:55 | Cardiology Progress Note ---
Juancarlos Cristina Vanessa RN, am scribing for, and in the presence of, Mike Cook MD 13 :55. Assessment and Plan - Time spent with patient Time spent with patient: Greater than 30 minutes (Assessment, planning, documentation, med review) (1) Atrial flutter Status: Acute Assessment and plan: 77-year-old WM, PMHx hypertension, hyperlipidemia, prostate CA. Now admitted to [facility] with acute ischemic CVA and new onset atrial flutter RVR. Typical atrial flutter has been maintained with IV Cardizem, with rate control difficult at times. Anticoagulated with Xarelto and ASA. Neuro symptoms are improving. Echo: LVEF 35%, moderate DD, mild pulm HTN EKG: a-flutter w/ vent response 90s; bursts RVR 130s -AFL- typical. We will plan for rhythm control, once recovers from acute issues. He may still have an ALEX clot. Plan for anticoagulation for a month, then we can proceed with CECY guided ablation. Continue pharmacological rate control. Cont Xarelto, ASA -Cont BB, CCB for RVR. May increase dose, as tolerated by blood pressure. -Hypertension- BP controlled today -cont statin Current Visit: Yes Qualifiers: Atrial flutter type: typical Qualified Code(s): I48.3 - Typical atrial flutter (2) Acute CVA (cerebrovascular accident) Status: Acute Assessment and plan: SEE PLAN OF CARE LISTED ABOVE. Current Visit: Yes (3) Dyslipidemia Status: Chronic Assessment and plan: SEE PLAN OF CARE LISTED ABOVE. Current Visit: Yes (4) Hypertension Status: Chronic Assessment and plan: SEE PLAN OF CARE LISTED ABOVE. Current Visit: Yes Cardiology - PN: Subj Interval history: Credit Rating Inspector: Dr. Cook (new) SUMMARY: 77-year-old WM, PMHx hypertension, GERD, DVT, hyperlipidemia, prostate CA. He was admitted to [facility] on 08/15 after being referred by his storeroom keeper Dr. Martinez, who had seen patient in his clinic that morning for complaints of vision loss of the left eye. CT brain with right-sided occipital infarct. EKG showed new onset atrial fib/flutter with RVR 130s. Rate controlled with IV Cardizem. Carotid Doppler US with no high-grade ICA stenosis. Echo mild LVH and moderate global hypokinesis, EF 35%, moderate diastolic dysfunction, mild pulm HTN with PAP 46 mmHg. Since admission, vision has improved. No significant residual deficits. Was initiated on Eliquis at admission, and has been transitioned to Xarelto with ASA. Statin has been added per stroke protocol. EKG and tele: typical atrial flutter with expected difficult rate control. Candidate for ablation once acute neuro event improves and if rate control is refractory to medical management. August: Patient sitting up in bedside chair this morning. He is in no acute respiratory distress. Denies chest pain, dyspnea, palpitations, dizziness, or other. Biggest complaint today is watery eyes. Lungs CTA. Tele: Atrial flutter with ventricular response 90s. Does have bursts of RVR into the 130s. BP 120/60. Transient low BP with systolic pressure mid 80s. Labs reviewed. Cell counts are stable. Electrolytes and renal function within acceptable range. Plan for transfer to private room once bed is available. Continue to monitor and treat patient for hypertension, atrial flutter with RVR, and dyslipidemia. ROS: -Denies chest pain, palpitations -Denies dyspnea, orthopnea -Denies abd pain, N/V. Appetite is good. Exam (Progress Note) - Constitutional Vitals: Period Temp Pulse Resp BP Sys/[place] Pulse Ox Last 24 Hr 97.8 F-9805 F 76-136 13-90 82-129/48-90 93-98 Exam: General: No acute distress. Pleasant and cooperative. Appears comfortable. HEENT: PERRL, normocephalic, atraumatic. Mucous membranes moist. No jaundice noted. Conjunctiva moist and clear, sclerae anicteric. Neck: No JVD, no thyromegaly or lymphadenopathy noted. No carotid bruit. Cardiac: Irregular rate and rhythm. Mild tachycardia. No murmur rub or gallop. Lungs: Lungs CTA. No wheeze, rhonchi, stridor. No supplemental oxygen in use. Abdomen: Soft, bowel sounds normoactive. Nontender and nondistended. No abdominal bruit or thrill noted. No masses noted. Musculoskeletal: No fluid collection. Full range of motion is noted. Extremities: No clubbing, cyanosis noted. Upper extremity pulses 2+. Lower extremity pulses 2+. Capillary refill less than 3 seconds. BLE's with 2+ pitting edema. Knee-high TEDs in place Skin: Warm, dry, intact. No unusual lesions or rashes. No skin breakdown appreciated. No cyanosis, diaphoresis. Neuro: Awake, alert and oriented 3. Moves all extremities well without hemiparesis or paralysis. No essential tremor is appreciated. Psych: Normal affect and mood. Patient does not appear anxious or depressed. Result/EKG - Labs CBC & BMP: 08/16/17 06:05 08/16/17 06:05 Lab Results: I have reviewed the past 24 hour labs - EKG EKG results: interpreted by me, no acute changes (Atrial flutter) Quality Measures - Stroke Onset of Symptoms Date: 08/15/17 Onset of Symptoms Time: 05:00 Presenting Symptoms: Sudden visual loss Specialty Discharge - Follow Up or Referrals Joey Cristina Attila, MD, personally performed the services described in this documentation, ascribed by Zuri Bauer RN in my presence, and it is both accurate and complete [id number] .
--- NOTE | 2017-08-17 15:06 | Neurology Progress Note ---
Neurology - PN : Subjective Interval history: Mr. Falcon seems to be doing better. Neurologically he is quite stable. No new problems reported. Heart rate is is still fluctuating. Exam (Progress Note) - Constitutional Vitals: Period Temp Pulse Resp BP Sys/[place] Pulse Ox Last 24 Hr 98 F-9805 F 59-135 13-27 82-151/48-90 86-98 Exam: GENERAL: Patient is in no acute distress. NECK: Neck is supple. There is no JVD. No carotid bruits present. No thyroid masses. CVS: First and second heart sounds are normal. There is no S3 present. Regular rate and rhythm. RESPIRATORY: Lungs are clear to auscultation without any rales or rhonchi. ABDOMEN: Soft and non-tender. Bowel sounds are present. There is no hepatosplenomegaly. EXT: There is no palpable edema. Peripheral pulses are present. Skin: No rashes Central Nervous system: General: Alert, awake and Oriented x 3 Speech: Fluent Comprehension: Intact and normal Facial expressions: Normal Cranial Nerves: CN1/Olfactory: Normal CN II/ Optic: Normal, Visual Mendez: Left homonymous hemianopia CN III, and : EDWIN & EOMI CN V: Normal & intact CN VII: face is symmetric CNVIII: Normal CN XI/X/XI/XII: Intact and Normal Motor: Bulk and Tone is normal. Strength in the right 5/5 Strength in the left 5/5 Sensory: Grossly intact for all the modalities of PP, LT and temp sense Reflexes: 1+ and symmetrical Cerebellar function: Normal finger to nose and heel to jarrett testing. Toes: Equivocal Gait: Not tested at this time Results - Labs CBC & BMP: 08/16/17 06:05 08/16/17 06:05 Assessment and Plan (1) Acute CVA (cerebrovascular accident) Status: Acute Assessment and plan: Continue aspirin a day Continue Xarelto 20 mg. P.o. daily Add Lipitor 5 mg p.o. daily Okay to go to the floor from neuro standpoint Current Visit: Yes (2) New onset atrial fibrillation Status: Acute Assessment and plan: Continue Cardizem Current Visit: Yes (3) Hypertension Status: Chronic Assessment and plan: Continue current medications. Check vitals per routine Current Visit: Yes Quality Measures - Stroke Onset of Symptoms Date: 08/15/17 Onset of Symptoms Time: 05:00 Presenting Symptoms: Sudden visual loss Specialty Discharge - Follow Up or Referrals
[2017-08-17] MEDS: RIVAROXABAN 20 MG TABLET PO SCH (17:27)
[2017-08-17] MEDS: ATORVASTATIN 10 MG TABLET PO SCH (21:39)
[2017-08-18] MEDS: DILTIAZEM INJ 100 MG in SODIUM CHLORIDE 0.9% 100 ML IV SCH (01:35)
[2017-08-18 04:23] LABS: Basophils % 0.4 % (0.0-0.8); Eosinophils # 0.2 10*3/uL (0.0-0.87); Hematocrit 38.5 VOL% (42.0-52.0); Hemoglobin 13.2 GM/DL (14.0-18.0); Immature Granulocytes % 0.6 %; Immature Granulocytes Absolute 0.03 #; Lymphocytes % 18.8 % (21.2-54.2); Mean Corpuscular HGB Conc 34.3 GM/DL (32-36); Mean Corpuscular Hemoglobin 32 PG (27-34); Mean Corpuscular Volume 91.9 FL (87-102); Mean Platelet Volume 12.8 FL (9.6-12.0); Monocytes # 0.7 10*3/uL (0.11-0.8); Monocytes % 13.7 % (1.7-12.7); Neutrophils # 3.4 10*3/uL (1.4-7.4); Neutrophils % 63.5 % (38.7-73.9); Platelet Count 134 T/CUMM (130-400); Red Blood Count 4.19 MC/CUMM (3.8-5.5); Red Cell Distribution Width 14.3 % (9.3-17.3); White Blood Count 5.3 T/CUMM (4-12)
[2017-08-18 04:50] LABS: Calcium 8.6 MG/DL (8.5-10.1); Potassium 4.3 MMOL/L (3.5-5.1)
[2017-08-18] MEDS: DILTIAZEM CD 240 MG CAPSULE PO SCH ×2 (07:12→08:29)
[2017-08-18] MEDS: METOPROLOL TARTRATE 25 MG TABLET PO SCH ×3 (07:13→21:41)
--- NOTE | 2017-08-18 08:24 | Internal Med Progress Note ---
Assessment and Plan (1) Acute CVA (cerebrovascular accident) Status: Acute Assessment and plan: 77-year-old male admitted to acute care * Acute CVA. He is stable. Continue current treatment * A. fib/flutter. Plan is for rate control. CECY guided ablation in about a month * Hypertension. Continue current treatment * Working with PT and OT * Discussed with the patient Current Visit: Yes (2) New onset atrial fibrillation Status: Acute Current Visit: Yes (3) Hypertension Status: Chronic Current Visit: Yes (4) History of prostate cancer Status: Acute Current Visit: Yes (5) COPD (chronic obstructive pulmonary disease) Status: Acute Current Visit: Yes Internal Medicine - PN: Subj Interval history: He feels better this morning. He had an episode of shortness of breath earlier this morning. He denied any chest pain. He is walking with the help of physical therapy Exam (Progress Note) - Constitutional Vitals: Period Temp Pulse Resp BP Sys/[place] Pulse Ox Last 24 Hr 97.3 F-99.2 F 59-131 15-36 101-140/53-90 86-98 Exam: Examination: GENERAL: NAD. HEENT: Decreased vision in both eyes. NECK: Neck is supple. CVS: Rhythm is irregularly irregular. S1 and S2 are normal. Tachycardia RESPIRATORY: Lungs are clear. ABDOMEN: Soft and nontender. EXT: No edema. 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 Motor strength 5/5 SKIN: Warm and dry. MSK: No obvious deformity. Results - Labs CBC & BMP: 08/18/17 03:21 08/18/17 03:21 Lab Results: I have reviewed the past 24 hour labs Quality Measures - Stroke Onset of Symptoms Date: 08/15/17 Onset of Symptoms Time: 05:00 Presenting Symptoms: Sudden visual loss Specialty Discharge - Follow Up or Referrals
[2017-08-18] MEDS: PANTOPRAZOLE 40 MG TABLET PO SCH (08:28)
[2017-08-18] MEDS: BENAZEPRIL 10 MG TABLET PO SCH (08:28)
[2017-08-18] MEDS: DOCUSATE SODIUM 100 MG CAPSULE PO SCH ×2 (08:28→21:40)
[2017-08-18] MEDS: ASPIRIN EC 325 MG TABLET PO SCH (08:28)
--- NOTE | 2017-08-18 09:31 | XRay Report ---
XR chest 2V Indication: Shortness of breath Comparison: To August 2017 Findings: The heart and mediastinum are normal in size and configuration. The pulmonary vascularity is normal in caliber. No lung infiltrates, effusions, pneumothorax or other abnormality is demonstrated. Impression: No acute cardiopulmonary findings. PROCEDURE INTERPRETED AT [facility] DEPARTMENT OF RADIOLOGY Final Report Signed by: Dr. Jim Dave
--- NOTE | 2017-08-18 16:13 | Cardiology Progress Note ---
Juancarlos Cristina Vanessa RN, am scribing for, and in the presence of, Mike Cook MD 16 :13. Assessment and Plan - Time spent with patient Time spent with patient: Greater than 30 minutes (1) Atrial flutter Status: Acute Assessment and plan: 77-year-old WM, PMHx hypertension, hyperlipidemia, prostate CA. Now admitted to [facility] with acute ischemic CVA and new onset atrial flutter RVR. Typical atrial flutter has been maintained with IV Cardizem, with rate control difficult at times. Anticoagulated with Xarelto and ASA. Neuro symptoms are improving. Echo: LVEF 35%, moderate DD, mild pulm HTN EKG: a-flutter w/ vent response 90s; bursts RVR 130s -AFL- typical. stable. We will plan for rhythm control, once recovers from acute issues. He may still have an ALEX clot. Plan for anticoagulation for a month, then we can proceed with CECY guided ablation. Continue pharmacological rate control. -Increase Cardizem to 180 mg twice daily, continue metoprolol 25 mg twice daily. Blood pressure stable -Continue aspirin, Xarelto. -cont statin Current Visit: Yes Qualifiers: Atrial flutter type: typical Qualified Code(s): I48.3 - Typical atrial flutter (2) Acute CVA (cerebrovascular accident) Status: Acute Assessment and plan: SEE PLAN OF CARE LISTED ABOVE. Current Visit: Yes (3) Dyslipidemia Status: Chronic Assessment and plan: SEE PLAN OF CARE LISTED ABOVE. Current Visit: Yes (4) Hypertension Status: Chronic Assessment and plan: SEE PLAN OF CARE LISTED ABOVE. Current Visit: Yes Cardiology - PN: Subj Interval history: [place]: Dr. Cook (new) SUMMARY: 77-year-old WM, PMHx hypertension, GERD, DVT, hyperlipidemia, prostate CA. He was admitted to [facility] on 08/15 after being referred by his water quality specialist Dr. Martinez, who had seen patient in his clinic that morning for complaints of vision loss of the left eye. CT brain with right-sided occipital infarct. EKG showed new onset atrial fib/flutter with RVR 130s. Rate controlled with IV Cardizem. Carotid Doppler US with no high-grade ICA stenosis. Echo mild LVH and moderate global hypokinesis, EF 35%, moderate diastolic dysfunction, mild pulm HTN with PAP 46 mmHg. Since admission, vision has improved. No significant residual deficits. Was initiated on Eliquis at admission, and has been transitioned to Xarelto with ASA. Statin has been added per stroke protocol. EKG and tele: typical atrial flutter with expected difficult rate control. Candidate for ablation once acute neuro event improves and if rate control is refractory to medical management. Transferred from CCU to telemetry unit on 08/17. August: Patient is awake, alert, pleasant this morning. Ambulated in hallways this morning with PT assist and did well. Reports shortness of breath and difficulty taking in a deep breath earlier this morning but resolved spontaneously. Chest x -ray obtained and was normal. No chest pain. SBP 120-130 mmHg. Tele: atrial flutter 2:1, 80s, intermittent bursts RVR 130s. Labs reviewed and unremarkable. Continue to monitor and treat hypertension, hyperlipidemia, atrial flutter with acute CVA. No s/s bleeding. Conditions currently stable. ROS: -denies dyspnea, cough -denies chest pain, palpitations -denies abd pain, N/V. Appetite is good Exam (Progress Note) - Constitutional Vitals: Period Temp Pulse Resp BP Sys/[place] Pulse Ox Last 24 Hr 97.3 F-99.2 F 65-131 16-36 102-140/57-87 86-98 Exam: General: No acute distress. Pleasant and cooperative. Appears comfortable. HEENT: PERRL, normocephalic, atraumatic. Mucous membranes moist. No jaundice noted. Conjunctiva moist and clear, sclerae anicteric. Neck: No JVD, no thyromegaly or lymphadenopathy noted. No carotid bruit. Cardiac: Irregular rate and rhythm. Mild tachycardia. No murmur rub or gallop. Lungs: Lungs CTA. No wheeze, rhonchi, stridor. not requiring supplemental oxygen in use. Abdomen: Soft, bowel sounds normoactive. Nontender and nondistended. No abdominal bruit or thrill noted. No masses noted. Musculoskeletal: No fluid collection. Full range of motion is noted. Extremities: No clubbing, cyanosis noted. Upper extremity pulses 2+. Lower extremity pulses 2+. Capillary refill less than 3 seconds. BLE's with 2+ pitting edema. Knee-high TEDs in place Skin: Warm, dry, intact. No unusual lesions or rashes. No skin breakdown appreciated. No cyanosis, diaphoresis. Neuro: Awake, alert and oriented 3. Moves all extremities well without hemiparesis or paralysis. No essential tremor is appreciated. Psych: Normal affect and mood. Patient does not appear anxious or depressed. Result/EKG - Labs CBC & BMP: 08/18/17 03:21 08/18/17 03:21 Lab Results: I have reviewed the past 24 hour labs Labs: Laboratory Results - last 24 hr 08/18/17 08/18/17 03:21 03:21 WBC 5.3 RBC 4.19 Hgb 13.2 L Hct 38.5 L MCV 91.9 MCH 32 MCHC 34.3 RDW 14.3 Plt Count 134 MPV 12.8 H Neut % (Auto) 63.5 Lymph % (Auto) 18.8 L Custer % (Auto) 13.7 H Eos % (Auto) 3.0 Baso % (Auto) 0.4 Neut # (Auto) 3.4 Lymph # (Auto) 1.0 L C[place] # (Auto) 0.7 Eos # (Auto) 0.2 Baso # (Auto) 0.0 Immature Gran % 0.6 Nucleated RBC % 0.0 Immature Gran # 0.03 Nucleated RBCs # 0.00 Immature Plt Fraction 0.0 Sodium 143 Potassium 4.3 Chloride 109 H Carbon Dioxide 29 Anion Gap 9.3 BUN 20 H Creatinine 1.10 GFR Calculation 79 BUN/Creatinine Ratio 18.00 Glucose 108 H Calculated Osmolality 288.0 Calcium 8.6 - EKG EKG results: interpreted by me, no acute changes (Atrial flutter 2:1) Quality Measures - Stroke Onset of Symptoms Date: 08/15/17 Onset of Symptoms Time: 05:00 Presenting Symptoms: Sudden visual loss Specialty Discharge - Follow Up or Referrals Joey Cristina Attila, MD, personally performed the services described in this documentation, ascribed by Zuri Bauer RN in my presence, and it is both accurate and complete [id number] .
[2017-08-18] MEDS: RIVAROXABAN 20 MG TABLET PO SCH (17:08)
[2017-08-18] MEDS: ATORVASTATIN 10 MG TABLET PO SCH (21:40)
[2017-08-18] MEDS: DILTIAZEM CD 180 MG CAPSULE PO SCH (21:41)
[2017-08-19] MEDS: DILTIAZEM INJ 100 MG in SODIUM CHLORIDE 0.9% 100 ML IV SCH (01:04)
--- NOTE | 2017-08-19 08:37 | Internal Med Progress Note ---
Assessment and Plan (1) Acute CVA (cerebrovascular accident) Status: Acute Assessment and plan: 77-year-old male admitted to acute care * Acute CVA. He is stable. Continue current treatment * A. fib/flutter. His medications were increased yesterday. Plan to get his heart rate below 100 * Hypertension. Continue current treatment * Working with PT and OT * Discussed with the patient Current Visit: Yes (2) New onset atrial fibrillation Status: Acute Current Visit: Yes (3) Hypertension Status: Chronic Current Visit: Yes (4) History of prostate cancer Status: Acute Current Visit: Yes (5) COPD (chronic obstructive pulmonary disease) Status: Acute Current Visit: Yes Internal Medicine - PN: Subj Interval history: He is feeling okay. He is getting restless to go home. No chest pain or shortness of breath. He denies any worsening of his vision Exam (Progress Note) - Constitutional Vitals: Period Temp Pulse Resp BP Sys/[place] Pulse Ox Last 24 Hr 96.1 F-98.8 F 93-129 16-20 100-124/66-78 94-98 Exam: Examination: GENERAL: NAD. HEENT: Decreased vision in both eyes. NECK: Neck is supple. CVS: Rhythm is irregularly irregular. S1 and S2 are normal. Tachycardia RESPIRATORY: Lungs are clear. ABDOMEN: Soft and nontender. EXT: No edema. 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 Motor strength 5/5 SKIN: Warm and dry. MSK: No obvious deformity. Results - Labs CBC & BMP: 08/18/17 03:21 08/18/17 03:21 Lab Results: I have reviewed the past 24 hour labs Quality Measures - Stroke Onset of Symptoms Date: 08/15/17 Onset of Symptoms Time: 05:00 Presenting Symptoms: Sudden visual loss Specialty Discharge - Follow Up or Referrals
[2017-08-19] MEDS: DILTIAZEM CD 180 MG CAPSULE PO SCH ×2 (09:12→21:27)
[2017-08-19] MEDS: DOCUSATE SODIUM 100 MG CAPSULE PO SCH ×2 (09:13→21:29)
[2017-08-19] MEDS: PANTOPRAZOLE 40 MG TABLET PO SCH (09:13)
[2017-08-19] MEDS: METOPROLOL TARTRATE 25 MG TABLET PO SCH ×2 (09:13→21:27)
[2017-08-19] MEDS: ASPIRIN EC 325 MG TABLET PO SCH (09:13)
[2017-08-19] MEDS: BENAZEPRIL 10 MG TABLET PO SCH (09:13)
--- NOTE | 2017-08-19 11:20 | Cardiology Progress Note ---
Assessment and Plan (1) Atrial flutter Status: Acute Assessment and plan: 77-year-old WM, PMHx hypertension, hyperlipidemia, prostate CA. Now admitted to [facility] with acute ischemic CVA and new onset atrial flutter RVR. Typical atrial flutter has been maintained with IV Cardizem, with rate control difficult at times. Anticoagulated with Xarelto and ASA. Neuro symptoms are improving. Echo: LVEF 35%, moderate DD, mild pulm HTN EKG: a-flutter w/ vent response 90s; bursts RVR 130s -AFL- typical. As expected, heart rate remained difficult to control. Continue Cardizem 180 twice daily, increase metoprolol to 50 mg twice daily. -If we cannot achieve pharmacological rate control, we may need to proceed with ablation soon. In this case, he will need a CECY, to rule out ALEX thrombus, for which the suspicion is high, given his recent CVA. I would give it a few more days, if unable to control rate and he remains symptomatic, we can plan for the ablation early next week -Continue aspirin, Xarelto. -cont statin Current Visit: Yes Qualifiers: Atrial flutter type: typical Qualified Code(s): I48.3 - Typical atrial flutter (2) Acute CVA (cerebrovascular accident) Status: Acute Assessment and plan: SEE PLAN OF CARE LISTED ABOVE. Current Visit: Yes (3) Dyslipidemia Status: Chronic Assessment and plan: SEE PLAN OF CARE LISTED ABOVE. Current Visit: Yes (4) Hypertension Status: Chronic Assessment and plan: SEE PLAN OF CARE LISTED ABOVE. Current Visit: Yes Cardiology - PN: Subj Interval history: He is still in typical atrial flutter, heart rate remained difficult to control. He feels occasional palpitations, especially in the morning. No chest pain, shortness of breath. Exam (Progress Note) - Constitutional Vitals: Period Temp Pulse Resp BP Sys/[place] Pulse Ox Last 24 Hr 96.1 F-98.8 F 93-129 16-20 100-124/66-78 94-98 General appearance: normal weight, over weight - Head Head exam: Present: normal inspection. Absent: contusion - Eye Eye exam: Absent: periorbital swelling, scleral icterus Pupils: Absent: dilated - ENT ENT exam: Absent: normal external ear exam - Neck Neck exam: Present: normal inspection - Respiratory Respiratory exam: Present: clear to auscultation bilaterally. Absent: decreased breath sounds - Cardiovascular Cardiovascular exam: Present: irregular rhythm, systolic murmur, tachycardia. Absent: JVD - GI/Abdominal GI/Abdominal exam: Present: normal bowel sounds. Absent: distended - Extremities Exam Extremities exam: Present: normal inspection, normal capillary refill. Absent: edema - Back Exam Back exam: Present: normal inspection - Neurological Exam Neurological exam: Present: alert, oriented X3 - Psychiatric Psychiatric exam: Present: normal affect, normal mood - Skin Skin exam: Present: normal color, warm. Absent: cyanosis Result/EKG - Labs CBC & BMP: 08/18/17 03:21 08/18/17 03:21 Lab Results: I have reviewed the past 24 hour labs - EKG EKG results: interpreted by me Quality Measures - Stroke Onset of Symptoms Date: 08/15/17 Onset of Symptoms Time: 05:00 Presenting Symptoms: Sudden visual loss Specialty Discharge - Follow Up or Referrals
[2017-08-19] MEDS: RIVAROXABAN 20 MG TABLET PO SCH (16:45)
[2017-08-19] MEDS: ATORVASTATIN 10 MG TABLET PO SCH (21:28)
[2017-08-20] MEDS: PANTOPRAZOLE 40 MG TABLET PO SCH (09:33)
[2017-08-20] MEDS: BENAZEPRIL 10 MG TABLET PO SCH (09:33)
[2017-08-20] MEDS: METOPROLOL TARTRATE 25 MG TABLET PO SCH ×2 (09:34→21:20)
[2017-08-20] MEDS: ASPIRIN EC 325 MG TABLET PO SCH (09:34)
[2017-08-20] MEDS: DOCUSATE SODIUM 100 MG CAPSULE PO SCH ×2 (09:34→21:20)
[2017-08-20] MEDS: DILTIAZEM CD 180 MG CAPSULE PO SCH ×2 (09:34→21:19)
--- NOTE | 2017-08-20 11:09 | Cardiology Progress Note ---
Assessment and Plan (1) Atrial flutter Status: Acute Assessment and plan: 77-year-old WM, PMHx hypertension, hyperlipidemia, prostate CA. Now admitted to [facility] with acute ischemic CVA and new onset atrial flutter RVR. Typical atrial flutter has been maintained with IV Cardizem, with rate control difficult at times. Anticoagulated with Xarelto and ASA. Neuro symptoms are improving. Echo: LVEF 35%, moderate DD, mild pulm HTN EKG: a-flutter w/ vent response 90s; bursts RVR 130s -AFL- typical. Heart rate remained difficult to controlled medically. He has significant cardiomyopathy, will need to pursue intensive rate/rhythm control. Unfortunately, he had recent ischemic CVA, may still have an ALEX clot. -If able to control the arrhythmia medically, we can plan for ablation in 4 weeks. If he remains symptomatic from tachycardia, we can plan for a CECY/ ablation early next week. -Increase metoprolol to 100 mg twice daily. Continue Cardizem CD 180 mg twice daily. -Continue aspirin, Xarelto. -cont statin Current Visit: Yes Qualifiers: Atrial flutter type: typical Qualified Code(s): I48.3 - Typical atrial flutter (2) Acute CVA (cerebrovascular accident) Status: Acute Assessment and plan: SEE PLAN OF CARE LISTED ABOVE. Current Visit: Yes (3) Dyslipidemia Status: Chronic Assessment and plan: SEE PLAN OF CARE LISTED ABOVE. Current Visit: Yes (4) Hypertension Status: Chronic Assessment and plan: SEE PLAN OF CARE LISTED ABOVE. Current Visit: Yes Cardiology - PN: Subj Interval history: He is only minimally symptomatic at rest and with mild activity. No chest pain or shortness of breath. Still an typical atrial flutter with RVR, especially with activity. Exam (Progress Note) - Constitutional Vitals: Period Temp Pulse Resp BP Sys/[place] Pulse Ox Last 24 Hr 98.4 F-99.2 F 55-125 16-20 108-124/60-82 91-97 General appearance: no acute distress, over weight - Head Head exam: Present: normal inspection. Absent: contusion - Eye Eye exam: Absent: periorbital swelling, scleral icterus Pupils: Absent: dilated - ENT ENT exam: Present: normal external ear exam - Neck Neck exam: Present: normal inspection - Respiratory Respiratory exam: Present: clear to auscultation bilaterally. Absent: chest wall tenderness - Cardiovascular Cardiovascular exam: Present: irregular rhythm, tachycardia. Absent: JVD - GI/Abdominal GI/Abdominal exam: Present: normal bowel sounds. Absent: distended - Extremities Exam Extremities exam: Present: normal inspection, normal capillary refill. Absent: edema - Back Exam Back exam: Present: normal inspection - Neurological Exam Neurological exam: Present: alert, oriented X3 - Psychiatric Psychiatric exam: Present: normal affect, normal mood - Skin Skin exam: Present: normal color, warm. Absent: cyanosis Result/EKG - Labs CBC & BMP: 08/18/17 03:21 08/18/17 03:21 Lab Results: I have reviewed the past 24 hour labs - EKG EKG results: interpreted by me Quality Measures - Stroke Onset of Symptoms Date: 08/15/17 Onset of Symptoms Time: 05:00 Presenting Symptoms: Sudden visual loss Specialty Discharge - Follow Up or Referrals
--- NOTE | 2017-08-20 12:14 | Family Practice Progress Note ---
Family Practice - PN: Subj Interval history: Patient states that generally feels good. Has had some visual changes this a.m. but states they have improved. Denies any other deficits at present. Still having some burst of rapid atrial flutter. has further adjusted his meds. Denies any other related complaints. His a.m. labs are stable. We will continue present treatment plan Exam (Progress Note) - Constitutional Vitals: Period Temp Pulse Resp BP Sys/[place] Pulse Ox Last 24 Hr 97.8 F-99.2 F 55-124 16-20 108-124/60-82 91-97 Results - Labs CBC & BMP: 08/18/17 03:21 08/18/17 03:21 Quality Measures - Stroke Onset of Symptoms Date: 08/15/17 Onset of Symptoms Time: 05:00 Presenting Symptoms: Sudden visual loss Specialty Discharge - Follow Up or Referrals
[2017-08-20] MEDS: RIVAROXABAN 20 MG TABLET PO SCH (16:43)
[2017-08-20] MEDS: ATORVASTATIN 10 MG TABLET PO SCH (21:19)
[2017-08-21 04:24] LABS: Basophils % 0.7 % (0.0-0.8); Eosinophils # 0.3 10*3/uL (0.0-0.87); Eosinophils % 5.8 % (0.00-10.9); Hematocrit 40.8 VOL% (42.0-52.0); Hemoglobin 13.8 GM/DL (14.0-18.0); Immature Granulocytes % 0.4 %; Immature Granulocytes Absolute 0.02 #; Lymphocytes # 1.3 10*3/uL (1.4-4.0); Lymphocytes % 29.1 % (21.2-54.2); Mean Corpuscular HGB Conc 33.8 GM/DL (32-36); Mean Corpuscular Hemoglobin 31 PG (27-34); Mean Corpuscular Volume 91.3 FL (87-102); Monocytes # 0.4 10*3/uL (0.11-0.8); Monocytes % 9.9 % (1.7-12.7); Neutrophils # 2.4 10*3/uL (1.4-7.4); Neutrophils % 54.1 % (38.7-73.9); Platelet Count 184 T/CUMM (130-400); Red Blood Count 4.47 MC/CUMM (3.8-5.5); Red Cell Distribution Width 13.9 % (9.3-17.3); White Blood Count 4.5 T/CUMM (4-12)
[2017-08-21 04:43] LABS: Calcium 9.1 MG/DL (8.5-10.1)
[2017-08-21 04:44] LABS: Potassium 4.4 MMOL/L (3.5-5.1)
[2017-08-21] MEDS: METOPROLOL TARTRATE 25 MG TABLET PO SCH (08:53)
[2017-08-21] MEDS: ASPIRIN EC 325 MG TABLET PO SCH (08:54)
[2017-08-21] MEDS: PANTOPRAZOLE 40 MG TABLET PO SCH (08:54)
[2017-08-21] MEDS: BENAZEPRIL 10 MG TABLET PO SCH (08:54)
[2017-08-21] MEDS: DOCUSATE SODIUM 100 MG CAPSULE PO SCH (08:54)
[2017-08-21] MEDS: DILTIAZEM CD 180 MG CAPSULE PO SCH (08:54)
--- NOTE | 2017-08-21 11:41 | Cardiology Progress Note ---
Assessment and Plan (1) Atrial flutter Status: Acute Assessment and plan: 77-year-old WM, PMHx hypertension, hyperlipidemia, prostate CA. Now admitted to [facility] with acute ischemic CVA and new onset atrial flutter RVR. Typical atrial flutter has been maintained with IV Cardizem, with rate control difficult at times. Anticoagulated with Xarelto and ASA. Neuro symptoms are improving. Echo: LVEF 35%, moderate DD, mild pulm HTN EKG: a-flutter w/ vent response 90s; bursts RVR 130s -AFL- typical. Heart rate remained difficult to controlled medically. His symptoms improved. Given his recent ischemic CVA, I would use 4 weeks of anticoagulation, before proceeding with rhythm control. -Continue metoprolol 100 mg twice daily, Cardizem CD 180 mg twice daily. No orthostatic symptoms. 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 Flutter morphology is typical. He will need CECY/CTI ablation, under anesthesia. -Follow-up with EP clinic in 3 weeks. -Continue aspirin, Xarelto. -cont statin -From a cardiac perspective, he may go home Current Visit: Yes Qualifiers: Atrial flutter type: typical Qualified Code(s): I48.3 - Typical atrial flutter (2) Acute CVA (cerebrovascular accident) Status: Acute Assessment and plan: SEE PLAN OF CARE LISTED ABOVE. Current Visit: Yes (3) Dyslipidemia Status: Chronic Assessment and plan: SEE PLAN OF CARE LISTED ABOVE. Current Visit: Yes (4) Hypertension Status: Chronic Assessment and plan: SEE PLAN OF CARE LISTED ABOVE. Current Visit: Yes Cardiology - PN: Subj Interval history: He is in typical atrial flutter, RVR. Heart rate trends 100 120 bpm. He has no issues with ambulation, vision is still very poor. Denies chest pain shortness of breath. Exam (Progress Note) - Constitutional Vitals: Period Temp Pulse Resp BP Sys/[place] Pulse Ox Last 24 Hr 97.8 F-99 F 81-123 16-18 109-125/69-82 92-96 General appearance: normal weight, no over weight - Head Head exam: Present: normal inspection. Absent: normocephalic - Eye Eye exam: Absent: conjunctival injection, scleral icterus Pupils: Absent: dilated - ENT ENT exam: Absent: normal external ear exam - Neck Neck exam: Present: normal inspection - Respiratory Respiratory exam: Present: clear to auscultation bilaterally. Absent: chest wall tenderness - Cardiovascular Cardiovascular exam: Present: irregular rhythm, systolic murmur, tachycardia. Absent: JVD - GI/Abdominal GI/Abdominal exam: Present: normal bowel sounds. Absent: distended - Extremities Exam Extremities exam: Present: normal inspection, normal capillary refill. Absent: edema - Back Exam Back exam: Present: normal inspection - Neurological Exam Neurological exam: Present: alert, oriented X3 - Psychiatric Psychiatric exam: Present: normal affect, normal mood - Skin Skin exam: Present: normal color, warm. Absent: cyanosis Result/EKG - Labs CBC & BMP: 08/21/17 03:22 08/21/17 03:22 Lab Results: I have reviewed the past 24 hour labs Labs: Laboratory Results - last 24 hr 08/21/17 08/21/17 03:22 03:22 WBC 4.5 RBC 4.47 Hgb 13.8 L Hct 40.8 L MCV 91.3 MCH 31 MCHC 33.8 RDW 13.9 Plt Count 184 D MPV 12.0 Neut % (Auto) 54.1 Lymph % (Auto) 29.1 [place] % (Auto) 9.9 Eos % (Auto) 5.8 Baso % (Auto) 0.7 Neut # (Auto) 2.4 Lymph # (Auto) 1.3 L [place] # (Auto) 0.4 Eos # (Auto) 0.3 Baso # (Auto) 0.0 Immature Gran % 0.4 Nucleated RBC % 0.0 Immature Gran # 0.02 Nucleated RBCs # 0.00 Immature Plt Fraction 0.0 Sodium 143 Potassium 4.4 Chloride 108 H Carbon Dioxide 26 Anion Gap 13.4 BUN 15 Creatinine 0.90 GFR Calculation 101 BUN/Creatinine Ratio 16.00 Glucose 109 H Calculated Osmolality 286.0 Calcium 9.1 - EKG EKG results: interpreted by me Quality Measures - Stroke Onset of Symptoms Date: 08/15/17 Onset of Symptoms Time: 05:00 Presenting Symptoms: Sudden visual loss Specialty Discharge - Follow Up or Referrals - Speciality Discharge Instructions Cardiology Instructions: FU with dr. Cook in 3 weeks
[2017-08-21 12:27] VITALS: BP 116/79
--- NOTE | 2017-08-21 13:06 | Discharge Summary ---
Hospital Course - Hospital Course Hospital Course: Mr. Falcon is a 77 year old male with history of hypertension, DVT, hyperlipidemia, osteoarthritis and prostate cancer who was helping prepare his for kidney surgery this morning. He got up this morning and was unable to see out of his left eye. He dropped his at the hospital and went to see his eye doctor and was sent to the emergency room. CT scan in the emergency room revealed an acute occipital infarct on the right side. Is also noted to be in atrial flutter with a rapid ventricular response. View of history he was admitted for evaluation therapy HOSPITAL COURSE -patient was admitted hospital lab and x-ray studies obtained. Patient was seen in consultation by Dr. Kate a local neurologist. He was started on Xarelto. He was also seen in consultation by Dr. Cook. Patient was started on IV and oral medications to control his ventricular rate. His vision has slowly improved. His rate has been difficult to control. He has been tried on various medications but continues to have variable rate with occasional rapid ventricular response. feels that he is going to need ablation treatment. The patient is stable at present and has been cleared for discharge. Will discharge to home care and arrange follow-up with Dr. Cook in 3 weeks. Will arrange follow-up with Dr. Lucia in 2 weeks. Will have patient call or come to the emergency room if condition worsens or new problems develop Diagnosis - Discharge Diagnosis (1) Acute CVA (cerebrovascular accident) Status: Acute (2) Atrial flutter Status: Acute (3) COPD (chronic obstructive pulmonary disease) Status: Acute (4) History of prostate cancer Status: Acute Specialty Discharge - Follow Up or Referrals Discharge Plan - Discharge Data Disposition: Disch To Home/Self Care Condition at Discharge: Stable Discharge Diet: advance to your usual diet Activity: resume usual activities as tolerated Hygiene: no restrictions Weight Bearing at Discharge: full weight bearing Driving: no restrictions Contact your physician if you experience:: fever over 101, Nausea/Vomiting, Shortness of breath - Discharge Medications New Rivaroxaban [Xarelto] 20 mg PO DAILY W/SUPPER #30 tablet Diltiazem Cd Cap [Cardizem CD] 180 mg PO BID #60 capsule Metoprolol Tartrate Tab [Lopressor Tab] 100 mg PO BID #60 tablet Continue Omeprazole [Prilosec] 40 mg PO DAILY Benazepril HCl 20 mg PO DAILY Naproxen [Naproxen Tab] 500 mg PO BID Aspirin [Ecotrin] 325 mg PO QAM - Follow Up or Referral Follow Up: Mike Cook MD [Physician] - (Follow-up appointment in 3 weeks) Yony Lucia MD [Physician] - 2 Weeks - Forms/Instructions Instructions: Ischemic Stroke (DC) Additional Discharge Instructions: Call in present medications to Mr. malagon # 1 Exam - Constitutional Vitals: Period Temp Pulse Resp BP Sys/[place] Pulse Ox Last 24 Hr 98.2 F-99 F 81-123 16-18 112-125/69-82 92-96 General appearance: no acute distress - Head Head exam: Present: normal inspection - Eye Pupils: Present: EDWIN - ENT ENT exam: Present: normal exam - Neck Neck exam: Present: normal inspection - Respiratory Respiratory exam: Present: clear to auscultation bilaterally - Cardiovascular Cardiovascular exam: Present: irregular rhythm - GI/Abdominal GI/Abdominal exam: Present: normal bowel sounds, soft - Extremities Exam Extremities exam: Present: normal inspection - Back Exam Back exam: Present: normal inspection - Neurological Exam Neurological exam: Present: alert, oriented X3 - Psychiatric Psychiatric exam: Present: normal affect, normal mood - Skin Skin exam: Present: normal color Discharge Results Procedures and tests throughout hospitalization: Pending Orders 08/22/17 04:00 Basic Metabolic Panel IN AM Labs on day of discharge: Labs from last 24 hours 08/21/17 08/21/17 03:22 03:22 WBC 4.5 RBC 4.47 Hgb 13.8 L Hct 40.8 L MCV 91.3 MCH 31 MCHC 33.8 RDW 13.9 Plt Count 184 D MPV 12.0 Neut % (Auto) 54.1 Lymph % (Auto) 29.1 [place] % (Auto) 9.9 Eos % (Auto) 5.8 Baso % (Auto) 0.7 Neut # (Auto) 2.4 Lymph # (Auto) 1.3 L [place] # (Auto) 0.4 Eos # (Auto) 0.3 Baso # (Auto) 0.0 Immature Gran % 0.4 Nucleated RBC % 0.0 Immature Gran # 0.02 Nucleated RBCs # 0.00 Immature Plt Fraction 0.0 Sodium 143 Potassium 4.4 Chloride 108 H Carbon Dioxide 26 Anion Gap 13.4 BUN 15 Creatinine 0.90 GFR Calculation 101 BUN/Creatinine Ratio 16.00 Glucose 109 H Calculated Osmolality 286.0 Calcium 9.1 DS: Provider Date of admission: 08/15/17 11:14 Primary care physician: . No PCP Attending physician on admission: Yony Lucia MD Consults: 08/15/17 12:08 Consult to Case Mgmt/Social Srvs [CONS] Routine Reason for Case Mgmt/Social Srvs: Discharge Planning Consult to Physician [CONS] Routine Comment: New onset atrial fibrillation Consulting Provider: Mike Cook Person Notified: MATTHEW new consults Date Notified: 08/15/17 Time Notified: 13:09 Consult to Physician [CONS] Routine Comment: Right occipital lobe infarct Consulting Provider: Bolivar De Jesus Person Notified: Kat Date Notified: 08/15/17 Time Notified: 12:22 08/16/17 12:27 Consult to Occupational Therapy [CONS] Routine Reason for Occupational Therapy: Evaluate and Treat Consult to Physical Therapy [CONS] Routine Reason for Physical Therapy: Evaluate and Treat Discharging clinician: Justin Rojas DO
== END 2017-08-21 15:04 | disposition home or self-care (01) | DRG 65 ==
LOC: N.ED 09:53 → N.EDINP 11:14 → N.CC 12:03 → N.TELEN 08-17 17:53
PROVIDERS: ADMIT Internal Medicine; ATTEND Internal Medicine